=== PATIENT | male | born 2000 | race American Indian/Alaskan Native ===

== ENCOUNTER 2019-03-23 14:17 | Emergency (ER) | payer OTHER ==
[2019-03-23 14:33] VITALS: BMI 25.7
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
[2019-03-23 14:57] VITALS: RESP 18
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
[2019-03-23 16:33] VITALS: BP 126/71; PULSE 82; TEMP 98; O2SAT 98
== END 2019-03-23 16:37 | disposition home or self-care (01) ==
LOC: MERGE 14:17 → ED 14:17
DX: S99.911A Unspecified injury of right ankle, initial encounter (principal); S99.922A Unspecified injury of left foot, initial encounter; V03.90XA Pedestrian on foot injured in collision with car, pick-up truck or van, unspecified whether traffic or nontraffic accident, initial encounter; Y92.410 Unspecified street and highway as the place of occurrence of the external cause